=== PATIENT | female | born 1960 | race Caucasian/White ===

== ENCOUNTER 2018-08-10 07:10 | Day surgery (SDC) | payer BC ==
[2018-08-10] MEDS ORDERED: PROPOFOL 20 ML (08:20)
[2018-08-10] MEDS ORDERED: MIDAZOLAM 1 MG/ML 2 ML INJ (08:20)
[2018-08-10] MEDS ORDERED: ETOMIDATE 20 MG INJ (08:20)
[2018-08-10] MEDS ORDERED: LIDOCAINE 2% JELLY 5 ML (08:20)
== END 2018-08-10 10:35 | disposition home or self-care (01) ==
LOC: GIL 07:10
DX: K29.00 Acute gastritis without bleeding (principal); K64.8 Other hemorrhoids
CPT/HCPCS: 43239; 88305